=== PATIENT | female | born 1995 | race Caucasian/White ===

== ENCOUNTER → 2017-04-02 | Outpatient (CLI) | payer OTHER ==
[~2017-04-02] MED LIST: ATARAX,VISTARIL25 MG PO; AUGMENTIN875 MG PO; CELEXA20 MG PO; CETIRIZINE HCL10 M2 PO; CITALOPRAM HBR20 MG PO; DESYREL100 MG PO; EFFEXOR XR37.5 MG PO; FLEXERIL10 MG PO; FLUOXETINE HCL20 MG PO; IBUPROFEN800 MG PO; KLONOPIN0.5 M1 PO; MECLIZINE HCL25 MG PO; MOTRIN600 MG PO; MOTRIN800 MG PO; NAPROSYN500 MG PO; NAPROXEN500 MG PO; NASONEX17 GM BOTH NARES; NOHOMEMEDS; OMEPRAZOLE20 M2 PO; OMEPRAZOLE40 M1 PO; PREDNISONE10 MG PO; RISPERDAL0.5 MG PO; RISPERDAL2 MG PO; RISPERIDONE0.5 MG PO; ROBITUSSIN AC,T10 ML PO; TESSALON PERLE100 MG PO; TOPIRAMATE25 MG PO; TRAZODONE HCL50 MG PO; VALIUM2 MG PO; VENLAFAXINE HCL75 M3 PO; VENTOLIN HFA18 GM IH; ZOFRAN ODT4 MG PO; ZOFRAN4 MG PO
== END | disposition home or self-care (01) ==
LOC: RAD 20:58
DX: J32.2 Chronic ethmoidal sinusitis (principal); J32.0 Chronic maxillary sinusitis
CPT/HCPCS: 70450

== ENCOUNTER 2017-09-14 21:26 | Emergency (ER) | payer OTHER ==
[~2017-09-14] VITALS: Ht 165.1 cm; Wt 127.2 kg
[2017-09-14 22:52] LABS: ADD MIUA? NO; BILIRUBIN NEGATIVE; BLOOD NEGATIVE; COLOR STRAW ((YELLOW)); GLUCOSE (STRIP) NEGATIVE; KETONES NEGATIVE; LEUKOCYTES NEGATIVE; NITRITE NEGATIVE; PROTEIN (STRIP) NEGATIVE; SPECIFIC GRAVITY 1.016 (1.000-1.030); UROBILINOGEN 0.2 MG/DL (0.2-1.0)
[2017-09-14 23:08] LABS: HEMATOCRIT 42.3 % (36.0-46.0); MCH 27.4 PG (29.0-34.0); MCHC 33.3 G/DL (30.0-36.0); MCV 82.1 FL (83-99); MEAN PLAT.VOLUME 11.4 uM^3 (9.5-12.4); PLATELET COUNT 251 K/uL (156-360); RBC DIS.WIDTH-CV 13.2 % (11.8-14.6); RBC DIS.WIDTH-SD 38.7 % (39-53); RED BLOOD COUNT 5.15 M/uL (3.80-5.20); WHITE BLOOD COUNT 11.1 K/uL (4.1-10.2)
[2017-09-14 23:19] LABS: CHLORIDE 105 mEq/L (99-109); POTASSIUM 3.8 mEq/L (3.7-5.4); SODIUM 140 mEq/L (136-147)
[2017-09-14 23:21] LABS: GLUCOSE 86 mg/dL (70-99)
[2017-09-14 23:22] LABS: ANION GAP 14 MEQ/L (2-14)
[2017-09-14 23:25] LABS: GFR ESTIMATE (CALCULATED) > 59 mL/min/; UREA NITROGEN (BUN) 17 mg/dL (9-23)
[2017-09-14 23:29] LABS: AMPHETAMINE NEGATIVE (500 ng/mL); BARBITURATES NEGATIVE (200 ng/mL); BENZODIAZEPINES NEGATIVE (150 ng/mL); COCAINE NEGATIVE (150 ng/mL); INTERNAL CONTROLS VALID? YES; METHADONE NEGATIVE (200 ng/mL); METHAMPHETAMINE NEGATIVE (500 ng/mL); OPIATES (MORPHINE) NEGATIVE (100 ng/mL); OXYCODONE NEGATIVE (100 ng/mL); PHENCYCLIDINE NEGATIVE (25 ng/mL); PROPOXYPHENE NEGATIVE (300 ng/mL); THC CANNABINOIDS NEGATIVE (50 ng/mL); TRICYCLIC ANTIDEPRESSANTS NEGATIVE (300 ng/mL)
[2017-09-14 23:36] LABS: QUANTITATIVE HCG < 4.0 MIU/ML
[2017-09-15] MEDS ORDERED: FIORICET 50-301 EACH PO (00:25)
[2017-09-15] MEDS ORDERED: MOTRIN800 MG PO (00:25)
[2017-09-15] MEDS ORDERED: ANTIVERT25 MG PO (00:25)
[2017-09-15 00:39] VITALS: BP 113/89
== END 2017-09-15 00:47 | disposition home or self-care (01) ==
LOC: EME 21:26
PROVIDERS: Physician Assistant
DX: R07.89 Other chest pain (principal); R51 Headache; I95.1 Orthostatic hypotension; F17.200 Nicotine dependence, unspecified, uncomplicated; F43.10 Post-traumatic stress disorder, unspecified; F60.3 Borderline personality disorder
CPT/HCPCS: 71020; 80048; 81003; 84702; 85027; 93005; 99281; 99285; J1885; J2405

== ENCOUNTER 2017-09-18 14:17 | Emergency (ER) | payer OTHER ==
[~2017-09-18] VITALS: Ht 165.1 cm; Wt 125.9 kg
[~2017-09-18 14:17] MED LIST changes: +ANTIVERT25 MG PO; +FIORICET 50-301 EACH PO
[2017-09-18 15:22] LABS: HEMATOCRIT 44.5 % (36.0-46.0); MCH 27.2 PG (29.0-34.0); MCHC 32.8 G/DL (30.0-36.0); MCV 82.9 FL (83-99); MEAN PLAT.VOLUME 10.4 uM^3 (9.5-12.4); PLATELET COUNT 262 K/uL (156-360); RBC DIS.WIDTH-CV 13.3 % (11.8-14.6); RBC DIS.WIDTH-SD 40.1 % (39-53); RED BLOOD COUNT 5.37 M/uL (3.80-5.20); WHITE BLOOD COUNT 10.1 K/uL (4.1-10.2)
[2017-09-18 15:31] VITALS: BP 119/76
[2017-09-18 15:35] LABS: CHLORIDE 105 mEq/L (99-109); POTASSIUM 4.2 mEq/L (3.7-5.4); SODIUM 140 mEq/L (136-147)
[2017-09-18 15:37] LABS: GLUCOSE 89 mg/dL (70-99)
[2017-09-18 15:39] LABS: ANION GAP 10 MEQ/L (2-14); TOTAL BILIRUBIN 0.5 mg/dL (0.0-1.0)
[2017-09-18 15:41] LABS: ALKALINE PHOSPHATASE 63 IU/L (3-129); GFR ESTIMATE (CALCULATED) > 59 mL/min/
[2017-09-18 15:43] LABS: UREA NITROGEN (BUN) 11 mg/dL (9-23)
[2017-09-18 15:45] LABS: QUANTITATIVE HCG < 4.0 MIU/ML
[2017-09-18 16:24] LABS: ADD MIUA? YES; BILIRUBIN NEGATIVE; BLOOD SMALL; COLOR YELLOW ((YELLOW)); GLUCOSE (STRIP) NEGATIVE; KETONES NEGATIVE; LEUKOCYTES NEGATIVE; NITRITE NEGATIVE; PROTEIN (STRIP) NEGATIVE; SPECIFIC GRAVITY 1.017 (1.000-1.030); UROBILINOGEN 0.2 MG/DL (0.2-1.0)
[2017-09-18 16:42] LABS: BACTERIA RARE /HPF; EPITHELIAL CELLS RARE /HPF; MUCUS TRACE /LPF; RED BLOOD CELLS 0-5 /HPF (0-5); UCUL ADDED? NO; WHITE BLOOD CELLS 0-5 /HPF (0-5)
[2017-09-18 17:18] LABS: INFLUENZA A VIRAL ANTIGEN NEGATIVE; INFLUENZA B VIRAL ANTIGEN NEGATIVE
== END 2017-09-18 17:39 | disposition left against medical advice (07) ==
LOC: EME 14:17
PROVIDERS: Physician Assistant
DX: J06.9 Acute upper respiratory infection, unspecified (principal); R11.2 Nausea with vomiting, unspecified; F31.9 Bipolar disorder, unspecified; F17.200 Nicotine dependence, unspecified, uncomplicated
CPT/HCPCS: 80053; 81003; 84702; 85027; 85379; 87502; 93005; 99281; 99283; J1885; Q0177

== ENCOUNTER 2017-10-08 22:53 | Emergency (ER) | payer OTHER ==
[~2017-10-08] VITALS: Ht 162.6 cm; Wt 130.4 kg
[2017-10-09 00:49] LABS: MCH 27.2 PG (29.0-34.0); MCHC 32.6 G/DL (30.0-36.0); MCV 83.5 FL (83-99); MEAN PLAT.VOLUME 10.1 uM^3 (9.5-12.4); PLATELET COUNT 263 K/uL (156-360); RBC DIS.WIDTH-CV 13.1 % (11.8-14.6); RBC DIS.WIDTH-SD 39.7 % (39-53); RED BLOOD COUNT 4.67 M/uL (3.80-5.20); WHITE BLOOD COUNT 11.1 K/uL (4.1-10.2)
[2017-10-09 01:04] LABS: CHLORIDE 107 mEq/L (99-109); POTASSIUM 4.3 mEq/L (3.7-5.4); SODIUM 141 mEq/L (136-147)
[2017-10-09 01:06] LABS: GLUCOSE 90 mg/dL (70-99)
[2017-10-09 01:07] LABS: ANION GAP 9 MEQ/L (2-14)
[2017-10-09 01:09] LABS: ADD MIUA? NO; BILIRUBIN NEGATIVE; BLOOD NEGATIVE; COLOR STRAW ((YELLOW)); GLUCOSE (STRIP) NEGATIVE; KETONES NEGATIVE; LEUKOCYTES NEGATIVE; NITRITE NEGATIVE; PROTEIN (STRIP) NEGATIVE; SPECIFIC GRAVITY 1.015 (1.000-1.030); UCUL ADDED? NO; UROBILINOGEN 0.2 MG/DL (0.2-1.0)
[2017-10-09 01:10] LABS: GFR ESTIMATE (CALCULATED) > 59 mL/min/
[2017-10-09 01:11] LABS: UREA NITROGEN (BUN) 14 mg/dL (9-23)
[2017-10-09 01:18] LABS: QUANTITATIVE HCG < 4.0 MIU/ML
[2017-10-09] MEDS ORDERED: FIORICET 50-301 EAC1 PO (03:10)
[2017-10-09 03:26] VITALS: BP 109/65
== END 2017-10-09 03:27 | disposition home or self-care (01) ==
LOC: EME 22:53
PROVIDERS: Emergency Medicine
PROC: 009U3ZX Drainage of Spinal Canal, Percutaneous Approach, Diagnostic (ICD-10-PCS; principal; 2017-10-09)
DX: R51 Headache (principal); F43.10 Post-traumatic stress disorder, unspecified; F60.3 Borderline personality disorder; F17.200 Nicotine dependence, unspecified, uncomplicated
CPT/HCPCS: 70450; 80048; 81003; 82945; 84157; 84702; 85027; 87070; 87205; 89051; 99281; 99285; J0780; J1200; J7030

== ENCOUNTER 2017-11-15 22:49 | Emergency (ER) | payer OTHER ==
[~2017-11-15] VITALS: Ht 165.1 cm; Wt 131.8 kg
[~2017-11-15 22:49] MED LIST changes: +FIORICET 50-301 EAC1 PO
[2017-11-15 22:52] VITALS: BP 137/85
== END 2017-11-16 01:31 | disposition left against medical advice (07) ==
LOC: EME 22:49
DX: M54.2 Cervicalgia (principal); Z53.21 Procedure and treatment not carried out due to patient leaving prior to being seen by health care provider

== ENCOUNTER 2017-12-06 16:10 | Inpatient (IN) | payer OTHER ==
[~2017-12-06] VITALS: Ht 162.6 cm; Wt 131.8 kg
[2017-12-06 17:37] LABS: HEMOGLOBIN 14.5 G/DL (11.9-15.5); MCH 27.1 PG (29.0-34.0); MCV 82.2 FL (83-99); PLATELET COUNT 303 K/uL (156-360); RBC DIS.WIDTH-CV 13.2 % (11.8-14.6); RED BLOOD COUNT 5.35 M/uL (3.80-5.20); WHITE BLOOD COUNT 11.6 K/uL (4.1-10.2)
[2017-12-06 17:50] LABS: CHLORIDE 107 mEq/L (99-109); SODIUM 141 mEq/L (136-147)
[2017-12-06 17:52] LABS: GLUCOSE 95 mg/dL (70-99)
[2017-12-06 17:55] LABS: SERUM ETHYL ALCOHOL < 10 mg/dL
[2017-12-06 17:56] LABS: CREATININE 0.7 mg/dL (0.6-1.3); GFR ESTIMATE (CALCULATED) > 59 mL/min/
[2017-12-06 17:57] LABS: UREA NITROGEN (BUN) 14 mg/dL (9-23)
[2017-12-06 18:05] LABS: QUANTITATIVE HCG < 4.0 MIU/ML
[2017-12-06 19:34] LABS: AMPHETAMINE NEGATIVE (500 ng/mL); BARBITURATES NEGATIVE (200 ng/mL); BENZODIAZEPINES NEGATIVE (150 ng/mL); BUPRENORPHINE NEGATIVE (10 ng/mL); COCAINE NEGATIVE (150 ng/mL); METHADONE NEGATIVE (200 ng/mL); METHAMPHETAMINE NEGATIVE (500 ng/mL); OPIATES (MORPHINE) NEGATIVE (100 ng/mL); OXYCODONE NEGATIVE (100 ng/mL); PHENCYCLIDINE NEGATIVE (25 ng/mL); PROPOXYPHENE NEGATIVE (300 ng/mL); THC CANNABINOIDS NEGATIVE (50 ng/mL); TRICYCLIC ANTIDEPRESSANTS NEGATIVE (300 ng/mL)
[2017-12-06] MEDS ORDERED: AZELASTINE137 MCG/0. BOTH NARES (21:52)
[2017-12-06 23:27] VITALS: BP 126/56
[2017-12-07] MEDS ORDERED: NICODERM CQ1 EAC2 TD (02:43)
[2017-12-07 07:51] VITALS: BP 122/56
[2017-12-07 15:15] VITALS: BP 114/61
[2017-12-08 07:30] VITALS: BP 106/54
[2017-12-08 16:06] VITALS: BP 135/60
[2017-12-09 08:00] VITALS: BP 117/53
[2017-12-09 16:48] VITALS: BP 110/56
[2017-12-10 07:49] VITALS: BP 112/70
[2017-12-10 15:35] VITALS: BP 97/54
[2017-12-11 08:01] VITALS: BP 115/57
[2017-12-11 15:53] VITALS: BP 121/66
[2017-12-12 07:38] VITALS: BP 106/60
[2017-12-12] MEDS ORDERED: ZIPRASIDONE HCL80 MG PO (10:25)
[2017-12-12] MEDS ORDERED: PRAZOSIN HCL1 MG PO (10:25)
== END 2017-12-12 11:47 | disposition home or self-care (01) | DRG 885 ==
LOC: EME 16:10 → 1WEST 21:34 → EDOF 21:34 → ENRESERV 23:23 → 1WEST 23:25
DX: F33.1 Major depressive disorder, recurrent, moderate (principal); R45.851 Suicidal ideations; F41.1 Generalized anxiety disorder; F69 Unspecified disorder of adult personality and behavior; F17.200 Nicotine dependence, unspecified, uncomplicated; E66.01 Morbid (severe) obesity due to excess calories; Z68.42 Body mass index [BMI] 45.0-49.9, adult; Z81.8 Family history of other mental and behavioral disorders
CPT/HCPCS: 80048; 84702; 85027; 90839; 93005; 94640 76; 97150 GO; 97166 GO; 99202; 99281; 99285; G0480

== ENCOUNTER 2017-12-27 13:56 | Emergency (ER) | payer OTHER ==
[~2017-12-27] VITALS: Ht 165.1 cm; Wt 132.7 kg
[~2017-12-27 13:56] MED LIST changes: +AZELASTINE137 MCG/0. BOTH NARES; +NICODERM CQ1 EAC2 TD; +PRAZOSIN HCL1 MG PO; +ZIPRASIDONE HCL80 MG PO
[2017-12-27 14:15] LABS: HEMATOCRIT 42.9 % (36.0-46.0); HEMOGLOBIN 14.2 G/DL (11.9-15.5); MCH 27.2 PG (29.0-34.0); MCHC 33.1 G/DL (30.0-36.0); PLATELET COUNT 306 K/uL (156-360); RBC DIS.WIDTH-SD 38.9 % (39-53); RED BLOOD COUNT 5.23 M/uL (3.80-5.20); WHITE BLOOD COUNT 12.4 K/uL (4.1-10.2)
[2017-12-27 14:20] LABS: ALBUMIN 4.4 g/dL (3.2-4.8); CHLORIDE 107 mEq/L (99-109); SODIUM 139 mEq/L (136-147)
[2017-12-27 14:22] LABS: GLUCOSE 98 mg/dL (70-99); TOTAL PROTEIN 7.9 g/dL (6.4-8.3)
[2017-12-27 14:24] LABS: TOTAL BILIRUBIN 0.3 mg/dL (0.0-1.0)
[2017-12-27 14:26] LABS: ALKALINE PHOSPHATASE 74 IU/L (3-129); CREATININE 0.8 mg/dL (0.6-1.3); GFR ESTIMATE (CALCULATED) > 59 mL/min/
[2017-12-27 14:27] LABS: UREA NITROGEN (BUN) 14 mg/dL (9-23)
[2017-12-27 14:28] LABS: AST (GOT) 22 IU/L (2-34)
[2017-12-27 14:29] LABS: ALT (GPT) 36 IU/L (3-49)
[2017-12-27 14:36] LABS: QUANTITATIVE HCG < 4.0 MIU/ML
[2017-12-27 14:50] LABS: APPEARANCE SL.HAZY ((CLEAR)); BILIRUBIN NEGATIVE; BLOOD NEGATIVE; COLOR YELLOW ((YELLOW)); GLUCOSE (STRIP) NEGATIVE; KETONES NEGATIVE; LEUKOCYTES LARGE; NITRITE NEGATIVE; PROTEIN (STRIP) 30; SPECIFIC GRAVITY 1.025 (1.000-1.030); UROBILINOGEN 0.2 MG/DL (0.2-1.0)
[2017-12-27 14:59] LABS: BACTERIA RARE /HPF; CALCIUM OXALATE CRYSTALS 1+ /HPF; EPITHELIAL CELLS 1+ /HPF; MUCUS TRACE /LPF; RED BLOOD CELLS 30-40 /HPF (0-5); UCUL ADDED? YES; WHITE BLOOD CELLS 40-50 /HPF (0-5)
[2017-12-27] MEDS ORDERED: KEFLEX500 MG PO (16:52)
[2017-12-27] MEDS ORDERED: IBUPROFEN600 MG PO (16:52)
[2017-12-27 16:58] VITALS: BP 108/51
== END 2017-12-27 17:00 | disposition home or self-care (01) ==
LOC: EME 13:56
DX: N39.0 Urinary tract infection, site not specified (principal); F60.3 Borderline personality disorder; F43.10 Post-traumatic stress disorder, unspecified; F41.0 Panic disorder [episodic paroxysmal anxiety]; F17.200 Nicotine dependence, unspecified, uncomplicated
CPT/HCPCS: 74019; 80053; 81003; 84702; 85027; 87077; 87086; 87186; 99281; 99283

== ENCOUNTER 2018-04-17 23:58 | Emergency (ER) | payer OTHER ==
[~2018-04-17] VITALS: Ht 165.1 cm; Wt 140.7 kg
[~2018-04-17 23:58] MED LIST changes: +IBUPROFEN600 MG PO; +KEFLEX500 MG PO
[2018-04-18 00:43] LABS: HEMATOCRIT 41.9 % (36.0-46.0); HEMOGLOBIN 13.9 G/DL (11.9-15.5); MCH 26.8 PG (29.0-34.0); MCHC 33.2 G/DL (30.0-36.0); MCV 80.9 FL (83-99); PLATELET COUNT 277 K/uL (156-360); RBC DIS.WIDTH-CV 13.4 % (11.8-14.6); RBC DIS.WIDTH-SD 39.1 % (39-53); RED BLOOD COUNT 5.18 M/uL (3.80-5.20); WHITE BLOOD COUNT 11.5 K/uL (4.1-10.2)
[2018-04-18 00:49] LABS: APPEARANCE CLOUDY ((CLEAR)); BILIRUBIN NEGATIVE; BLOOD SMALL; COLOR YELLOW ((YELLOW)); GLUCOSE (STRIP) NEGATIVE; KETONES NEGATIVE; LEUKOCYTES LARGE; NITRITE NEGATIVE; PROTEIN (STRIP) 30; UROBILINOGEN 0.2 MG/DL (0.2-1.0)
[2018-04-18 00:52] LABS: BACTERIA RARE /HPF; EPITHELIAL CELLS 2+ /HPF; MUCUS TRACE /LPF; RED BLOOD CELLS TNTC /HPF (0-5); UCUL ADDED? YES; WHITE BLOOD CELLS TNTC /HPF (0-5)
[2018-04-18 00:59] LABS: ALBUMIN 4.4 g/dL (3.2-4.8); CHLORIDE 106 mEq/L (99-109); SODIUM 140 mEq/L (136-147)
[2018-04-18 01:02] LABS: GLUCOSE 100 mg/dL (70-99); TOTAL PROTEIN 7.5 g/dL (6.4-8.3)
[2018-04-18 01:03] LABS: TOTAL BILIRUBIN 0.4 mg/dL (0.0-1.0)
[2018-04-18 01:05] LABS: ALKALINE PHOSPHATASE 61 IU/L (3-129); CREATININE 0.8 mg/dL (0.6-1.3); GFR ESTIMATE (CALCULATED) > 59 mL/min/
[2018-04-18 01:06] LABS: UREA NITROGEN (BUN) 17 mg/dL (9-23)
[2018-04-18 01:07] LABS: AST (GOT) 28 IU/L (2-34)
[2018-04-18 01:08] LABS: ALT (GPT) 47 IU/L (3-49)
[2018-04-18 01:17] LABS: QUANTITATIVE HCG < 4.0 MIU/ML
[2018-04-18 04:45] VITALS: BP 135/85
[2018-04-18 08:48] LABS: SOURCE SWAB
== END 2018-04-18 04:45 | disposition home or self-care (01) ==
LOC: EME 23:58
PROVIDERS: Physician Assistant
DX: N72 Inflammatory disease of cervix uteri (principal); A59.01 Trichomonal vulvovaginitis; R03.0 Elevated blood-pressure reading, without diagnosis of hypertension; F31.9 Bipolar disorder, unspecified; F60.3 Borderline personality disorder; F17.200 Nicotine dependence, unspecified, uncomplicated
CPT/HCPCS: 80053; 81003; 84702; 85027; 87086; 87210; 87491; 87591; 99281; 99284; J0696